=== PATIENT | female | born 1995 | race Caucasian/White ===

== ENCOUNTER 2017-12-05 07:31 | Emergency (ER) | payer OTHER ==
[~2017-12-05] VITALS: Ht 167.6 cm; Wt 75.0 kg
[~2017-12-05 07:31] MED LIST: NAPROSYN500 MG PO
[2017-12-05] MEDS ORDERED: BACTRIM DS 8001 TAB PO (08:02)
[2017-12-05] MEDS ORDERED: BIRTH CONTROL PO (08:03)
[2017-12-05 08:13] LABS: HEMATOCRIT 37.3 % (37.0-47.0); HEMOGLOBIN 13.1 g/dl (12.5-16.0); MEAN CELL VOLUME 91 fl (80.0-100.0); MEAN CORPUSCULAR HEMOGLOBIN 32 pg (27.0-31.0); MEAN CORPUSCULAR HGB CONC 35 g/dl (33.0-37.0); MEAN PLATELET VOLUME 11.1 fl (7.4-10.4); PLATELET COUNT 119 K/mm3 (130-400); RED BLOOD COUNT 4.11 M/mm3 (4.10-5.30); REDCELL DISTRIBUTION WIDTH-CV 12.1 % (11.5-14.5)
[2017-12-05 08:26] LABS: BILIRUBIN,TOTAL 0.3 mg/dL (0.0-1.0); C-REACTIVE PROTEIN 5.2 mg/dL (0.0-0.9); CALCIUM 8.7 mg/dL (8.4-10.2); CREATININE, serum 0.9 mg/dL (0.52-1.25); POTASSIUM 3.5 mmol/L (3.4-5.0); TOTAL PROTEIN 7.1 gm/dL (6.4-8.2)
[2017-12-05 09:15] LABS: BAND 4 % (0-10); EOSINOPHIL 6 % (0-4); LYMPHOCYTE 34 % (20.0-51.0); NEUTROPHILS 56 % (42.0-75.2); PLATELET ESTIMATE NORMAL (NORMAL)
[2017-12-05 09:47] VITALS: BP 94/51; PULSE 94; TEMP 99.2
[2017-12-05 10:07] LABS: COLLECTION METHOD CLEAN CATCH
[2017-12-05 10:14] LABS: MUCOUS Present /lpf; PH 6 (5-8); SQUAMOUS EPITHELIAL 0-2 /hpf; URINE APPEARANCE Clear; URINE BACTERIA Rare /hpf; URINE BILIRUBIN Negative (NEGATIVE); URINE BLOOD Negative (NEGATIVE); URINE COLOR Yellow; URINE GLUCOSE Negative (NEGATIVE); URINE KETONE Trace (NEGATIVE); URINE LEUKOCYTE ESTERASE Negative (NEGATIVE); URINE NITRATE Negative (NEGATIVE); URINE PROTEIN(semi-quant) Negative (NEGATIVE); URINE RBC 0-2 /hpf; URINE UROBILINOGEN Negative (NEGATIVE)
[2017-12-06 14:04] LABS: EBV EARLY ANTIGEN IGG Negative (()); EBV IGM AB Negative (()); EBV NUCLEAR ANTIGEN IGG Negative (())
== END 2017-12-05 09:45 | disposition home or self-care (01) ==
LOC: COL.ER 07:31
PROVIDERS: Physician Assistant
DX: B34.9 Viral infection, unspecified (principal); Z88.0 Allergy status to penicillin; Z98.818 Other dental procedure status
CPT/HCPCS: J7030

== ENCOUNTER → 2017-12-14 | Outpatient (CLI) | payer OTHER ==
[~2017-12-14] MED LIST changes: +BACTRIM DS 8001 TAB PO; +BIRTH CONTROL PO
== END ==
LOC: COL.RAD 14:15
DX: R17 Unspecified jaundice (principal); R11.2 Nausea with vomiting, unspecified